=== PATIENT | female | born 1990 | race Caucasian/White ===

== ENCOUNTER 2018-10-30 03:54 | Emergency (ER) | payer SELFPAY ==
[~2018-10-30] VITALS: Wt 72.9 kg
[2018-10-30 03:59] VITALS: BP 136/79; PULSE 107; RESP 20
== END 2018-10-30 07:03 | disposition left against medical advice (07) ==
LOC: FTE 03:54
DX: Z53.21 Procedure and treatment not carried out due to patient leaving prior to being seen by health care provider (principal)